=== PATIENT | female | born 1965 | race Caucasian/White ===

== ENCOUNTER 2017-08-26 10:15 | Day surgery (SDC) | payer MEDICAID ==
[2017-08-19 11:28] LABS: ABSOLUTE EOSINOPHILS # (AUTO) 0.3 10^3/uL (0.0-0.6); ABSOLUTE LYMPHOCYTES (AUTO) 3.2 10^3/uL (0.5-4.7); ABSOLUTE MONOCYTES (AUTO) 1.5 10^3/uL (0.1-1.4); ABSOLUTE NEUT (AUTO) 8.2 10^3/uL (1.7-8.2); BASOPHILS % (AUTO) 0.4 % (0-2); HEMATOCRIT 43.4 % (36.0-47.0); HEMOGLOBIN 14.3 g/dL (12.0-15.5); LYMPHOCYTES % (AUTO) 24.3 % (13-45); MEAN CORPUSCULAR VOLUME 88 fl (80-97); MONOCYTES % (AUTO) 11.3 % (3-13); PLATELET COUNT 313 10^3/uL (150-450); RED BLOOD COUNT 4.93 10^6/uL (3.72-5.28); RED CELL DISTRIBUTION WIDTH 14.2 % (11.5-14.0); TOTAL CELLS COUNTED % (AUTO) 100 %; WHITE BLOOD COUNT 13.2 10^3/uL (4.0-10.5)
[2017-08-19 11:30] LABS: APPEARANCE,URINE CLEAR; BILIRUBIN,URINE NEGATIVE (NEGATIVE); COLOR,URINE STRAW; GLUCOSE, URINE NEGATIVE (NEGATIVE); KETONES,URINE NEGATIVE (NEGATIVE); LEUKOCYTE ESTERASE,URINE TRACE (NEGATIVE); NITRITE,URINE NEGATIVE (NEGATIVE); PROTEIN,URINE NEGATIVE (NEGATIVE); URINE SPECIFIC GRAVITY 1.004; UROBILINOGEN,URINE NEGATIVE mg/dL (<2.0)
[2017-08-19 11:48] LABS: ANION GAP 10 (5-19); BLOOD UREA NITROGEN 14 mg/dL (7-20); CALCIUM 10.6 mg/dL (8.4-10.2); CARBON DIOXIDE 31 mmol/L (22-30); CHLORIDE 105 mmol/L (98-107); GLUCOSE 108 mg/dL (75-110); POTASSIUM 4.8 mmol/L (3.6-5.0); SODIUM 145.5 mmol/L (137-145)
--- NOTE | 2017-08-19 12:30 | RADIOLOGY REPORT (SQ) ---
EXAM DESCRIPTION: CHEST PA/LATERAL COMPLETED DATE/TIME: 08/19/2017 11:24 am REASON FOR STUDY: PRE OP COMPARISON: Two-view chest 02/16/2012, 05/23/2007 AP chest 02/12/2012 EXAM PARAMETERS: NUMBER OF VIEWS: two views TECHNIQUE: Digital Frontal and Lateral radiographic views of the chest acquired. RADIATION DOSE: NA LIMITATIONS: none FINDINGS: LUNGS AND PLEURA: No opacities, masses or pneumothorax. No pleural effusion. MEDIASTINUM AND HILAR STRUCTURES: No masses or contour abnormalities. HEART AND VASCULAR STRUCTURES: Heart normal size. No evidence for failure. BONES: No acute findings. HARDWARE: Clips right upper quadrant post cholecystectomy OTHER: No other significant finding. IMPRESSION: NO SIGNIFICANT RADIOGRAPHIC FINDING IN THE CHEST. TECHNICAL DOCUMENTATION: JOB ID: [id number] [employer]- All Rights Reserved Reading location - IP/workstation name: [email or web address]
--- NOTE | 2017-08-19 12:59 | EKG REPORT ---
SEVERITY:- NORMAL ECG - SINUS RHYTHM : Confirmed by: Jered Arguelles MD 19-Aug-2017 12:58:14
[~2017-08-26 10:15] MED LIST: CEFAZOLIN SODIUM 2 GM in NORMAL SALINE 100 ML IV PRN; DEXAMETHASONE SOD PHOSPHATE INJ 4 MG/1 ML VIAL ONE; FENTANYL CITRATE INJ/PF 100 MCG/2 ML AMPUL ONE; LACTATED RINGERS 1000 ML IV PRN; LIDOCAINE 0.5% INJ-PF (5 MG/ML) 50 ML SDV SUBCUT PRN; LIDOCAINE 2% INJ-PF (20 MG/ML) 10 ML AMPUL ONE; MIDAZOLAM 2 MG/2 ML INJ ONE; ONDANSETRON HCL INJ/PF 4 MG/2 ML SDV ONE; PROPOFOL INJ 200 MG/20 ML VIAL IV ONE; PROPRANOLOL HCL INJ/PF 1 MG/1 ML SDV IV ONE
[2017-08-26] MEDS ORDERED: METOCLOPRAMIDE HCL INJ/PF 10 MG/2 ML SDV ONE (10:57)
[2017-08-26] MEDS ORDERED: FAMOTIDINE INJ/PF 20 MG/2 ML SDV IV ONE (10:57)
[2017-08-26] MEDS ORDERED: ALBUTEROL SULFATE 0.083% NEB 2.5 MG/3 ML AMPUL NEB ONE (11:01)
[2017-08-26] MEDS ORDERED: IPRATROPIUM/ALBUTEROL 0.5-2.5 MG/3 ML AMPUL NEB ONE (11:03)
[2017-08-26] MEDS ORDERED: LIDOCAINE 1% INJ-PF (10 MG/ML) 30 ML SDV ONE (11:27)
[2017-08-26] MEDS ORDERED: BUPIVACAINE HCL 0.5 % INJ/PF 30 ML SDV ONE (11:27)
[2017-08-26] MEDS ORDERED: DIPHENHYDRAMINE HCL 50 MG/ML VIAL IV PRN (12:25)
[2017-08-26] MEDS ORDERED: PROMETHAZINE HCL INJ 25 MG/1 ML VIAL IV PRN ×2 (12:25)
[2017-08-26] MEDS ORDERED: MORPHINE SULFATE 10 MG/ML INJ IV PRN (12:25)
[2017-08-26] MEDS ORDERED: OXYCODONE-ACETAMINOPHEN 5-325 MG TABLET PO PRN ×2 (12:25)
[2017-08-26] MEDS ORDERED: ONDANSETRON HCL INJ/PF 4 MG/2 ML SDV IV PRN ×2 (12:25→12:37)
[2017-08-26] MEDS ORDERED: HYDROCODONE/ACETAMINOPHEN 5-325 MG TABLET PO PRN (12:37)
--- NOTE | 2017-08-26 12:37 | Operative Report ---
Operative Report DATE OF SURGERY: 08/26/17 PREOPERATIVE DIAGNOSIS: Right trigger thumb POSTOPERATIVE DIAGNOSIS: same OPERATION: Excision A1 sherita right trigger thumb SURGEON: ARY BLAKE 1ST TIMBER APPRAISER: JUJU FREY ANESTHESIA: LMAC COMPLICATIONS: None ESTIMATED BLOOD LOSS: Minimal PROCEDURE: Indication for above procedure: 52-year-old female with complaints of catching and locking in her right thumb. We discussed treatment options including operative versus nonoperative intervention. We attempted conservative management without complete resolution of patient's symptoms thus decision was made to proceed with operative treatment. Risks and benefits were explained patient verbalized understanding consented to the procedure. Procedure In Detail: Patient was seen and evaluated in the preoperative holding area. The RIGHT upper extremity was initialized and marked. Patient received 2g of Ancef IV for bacterial prophylaxis. Patient was taken back to the operative room where transferred to the operative table. Once they were adequately anesthetized a nonsterile tourniquet was placed on the upper extremity. A surgical team debriefing was performed ensuring all instrumentation was available, the surgical procedure was discussed with possible concerns reviewed. A digital block was performed utilizing 10 mL 50:50 mixture of 0.5% Marcaine and 1% lidocaine without epinephrine. The upper extremity was prepped with chlorhexidine and alcohol and draped in a sterile fashion. A timeout was done identifying correct patient, procedure and extremity everyone in attendance agree with this and verbalized no concerns. The extremity was exsanguinated the tourniquet was inflated to 200 mmHg. Transverse skin incision was made centered over the A1 sherita of the right thumb. The radial and ulnar neurovascular bundles were identified and retracted from the wound. The A1 sherita was identified and incised. The A1 sherita was released to the level of the oblique sherita but not through the oblique sherita. The palmar aponeurotic sherita was released proximal to the A1 sherita. Patient was then awoken from MAC anesthesia and made a full senior training and development rep there is no evidence of residual triggering or locking. The wound was then copiously irrigated with normal saline. Skin was closed with interrupted 4-0 nylon suture. Wound was dressed with Xeroform and a soft dressing. Sponge counts, instrument counts, needle counts counts were correct. Patient was then awoken from anesthesia. Transferred from the operating room table to the operating room stretcher. There was no intraoperative complications patient tolerated procedure well stable to PACU. Postoperative plan: Patient will follow-up as scheduled for wound check. They will call with any questions or concerns.
[2017-08-26] MEDS ORDERED: ACETAMINOPHEN 100 ML IV ONE (13:14)
[2017-08-26] MEDS ORDERED: MORPHINE SULFATE 10 MG/ML INJ ONE (13:26)
[2017-08-26 15:22] VITALS: BP 125/73
== END 2017-08-26 15:05 | disposition home or self-care (01) ==
LOC: OROUT 10:15
PROVIDERS: ATTEND Orthopaedic Surgery
PROC: 0LN70ZZ Release Right Hand Tendon, Open Approach (ICD-10-PCS; principal; 2017-08-26 12:30)
DX: M65.311 Trigger thumb, right thumb (principal); E78.5 Hyperlipidemia, unspecified; F17.210 Nicotine dependence, cigarettes, uncomplicated; J44.9 Chronic obstructive pulmonary disease, unspecified; E66.9 Obesity, unspecified; E53.9 Vitamin B deficiency, unspecified; G47.33 Obstructive sleep apnea (adult) (pediatric); E55.9 Vitamin D deficiency, unspecified; Z79.899 Other long term (current) drug therapy; Z68.37 Body mass index [BMI] 37.0-37.9, adult
CPT/HCPCS: 93005; 36415; 85025; 81025; 80048; 81001; 71046; 93010; 94640; 26055; J2250; J0690; J1100; J3490 ×2; J2765; J2270; J2405; J2704; S0028; J7620; J0131; 1810; J1800; J3010

== ENCOUNTER 2018-07-29 05:25 | Day surgery (SDC) | payer MEDICAID ==
--- NOTE | 2018-07-23 10:31 | RADIOLOGY REPORT (SQ) ---
EXAM DESCRIPTION: CHEST PA/LATERAL COMPLETED DATE/TIME: 07/23/2018 10:17 am REASON FOR STUDY: PRE-OP COMPARISON: None. NUMBER OF VIEWS: Two view. TECHNIQUE: Frontal and lateral radiographic views of the chest acquired. LIMITATIONS: None. FINDINGS: LUNGS AND PLEURA: No opacities, masses or pneumothorax. No pleural effusion. MEDIASTINUM AND HILAR STRUCTURES: No masses or contour abnormalities. HEART AND VASCULATURE: Heart normal size. No evidence for failure. BONY STRUCTURES: No acute findings. HARDWARE: None. OTHER: No other significant finding. IMPRESSION: NO SIGNIFICANT RADIOGRAPHIC FINDING IN THE CHEST. TECHNICAL DOCUMENTATION: JOB ID: [id number] [employer]- All Rights Reserved Reading location - IP/workstation name: [email or web address]
[2018-07-23 10:52] LABS: HEMATOCRIT 44.3 % (36.0-47.0); HEMOGLOBIN 15.3 g/dL (12.0-15.5); MEAN CORPUSCULAR HEMOGLOBIN 31.1 pg (27.0-33.4); MEAN CORPUSCULAR HGB CONC 34.5 g/dL (32.0-36.0); MEAN CORPUSCULAR VOLUME 90 fl (80-97); PLATELET COUNT 293 10^3/uL (150-450); RED CELL DISTRIBUTION WIDTH 13.4 % (11.5-14.0); WHITE BLOOD COUNT 10.5 10^3/uL (4.0-10.5)
[2018-07-23 10:57] LABS: APPEARANCE,URINE CLOUDY; BILIRUBIN,URINE NEGATIVE (NEGATIVE); COLOR,URINE YELLOW; GLUCOSE, URINE NEGATIVE (NEGATIVE); KETONES,URINE NEGATIVE (NEGATIVE); LEUKOCYTE ESTERASE,URINE LARGE (NEGATIVE); NITRITE,URINE POSITIVE (NEGATIVE); PROTEIN,URINE NEGATIVE (NEGATIVE); URINE SPECIFIC GRAVITY 1.009; UROBILINOGEN,URINE NEGATIVE mg/dL (<2.0)
[2018-07-23 11:26] LABS: ANION GAP 10 (5-19); BLOOD UREA NITROGEN 14 mg/dL (7-20); CALCIUM 10.3 mg/dL (8.4-10.2); CARBON DIOXIDE 26 mmol/L (22-30); CHLORIDE 106 mmol/L (98-107); GLUCOSE 102 mg/dL (75-110); POTASSIUM 4.7 mmol/L (3.6-5.0)
--- NOTE | 2018-07-23 13:51 | EKG REPORT ---
SEVERITY:- ABNORMAL ECG - SINUS RHYTHM FIRST DEGREE AV BLOCK PROBABLE LEFT ATRIAL ABNORMALITY : Confirmed by: Jered Arguelles MD 23-Jul-2018 13:50:37
[~2018-07-29 05:25] MED LIST changes: +CEFAZOLIN 2 GM/D5W RTU 2 GM/50 ML RTUPB IV ONE; +CEFAZOLIN 2 GM/D5W RTU 2 GM/50 ML RTUPB IV PRN; -CEFAZOLIN SODIUM 2 GM in NORMAL SALINE 100 ML IV PRN; -DEXAMETHASONE SOD PHOSPHATE INJ 4 MG/1 ML VIAL ONE; -FENTANYL CITRATE INJ/PF 100 MCG/2 ML AMPUL ONE; -LIDOCAINE 2% INJ-PF (20 MG/ML) 10 ML AMPUL ONE; -MIDAZOLAM 2 MG/2 ML INJ ONE; -ONDANSETRON HCL INJ/PF 4 MG/2 ML SDV ONE; -PROPOFOL INJ 200 MG/20 ML VIAL IV ONE; -PROPRANOLOL HCL INJ/PF 1 MG/1 ML SDV IV ONE
[2018-07-29] MEDS ORDERED: PROMETHAZINE HCL INJ 25 MG/1 ML VIAL ONE (06:55)
[2018-07-29] MEDS ORDERED: FENTANYL CITRATE INJ/PF 100 MCG/2 ML AMPUL ONE (06:55)
[2018-07-29] MEDS ORDERED: MIDAZOLAM 2 MG/2 ML INJ ONE (06:56)
[2018-07-29] MEDS ORDERED: ACETAMINOPHEN 1,000 MG/100 ML RTUPB IV ONE (06:56)
[2018-07-29] MEDS ORDERED: ONDANSETRON HCL INJ/PF 4 MG/2 ML SDV ONE (06:56)
[2018-07-29] MEDS ORDERED: PROPOFOL INJ 200 MG/20 ML VIAL IV ONE (06:56)
[2018-07-29] MEDS ORDERED: EPHEDRINE SULFATE INJ 50 MG/1 ML AMPULE ONE (06:56)
[2018-07-29] MEDS ORDERED: LIDOCAINE 2% INJ (20 MG/ML) 20 ML MDV ONE (06:57)
[2018-07-29] MEDS ORDERED: BUPIVACAINE HCL 0.5 % INJ/PF 30 ML SDV ONE (07:05)
[2018-07-29] MEDS ORDERED: LIDOCAINE 1%/EPINEPHRINE INJ 20 ML VIAL ONE (07:06)
[2018-07-29] MEDS ORDERED: MORPHINE SULFATE 10 MG/ML INJ ONE (07:09)
[2018-07-29] MEDS ORDERED: MORPHINE SULFATE 10 MG/ML INJ IV PRN (07:44)
[2018-07-29] MEDS ORDERED: PROMETHAZINE HCL INJ 25 MG/1 ML VIAL IV PRN ×2 (07:44)
[2018-07-29] MEDS ORDERED: DIPHENHYDRAMINE HCL 50 MG/ML VIAL IV PRN (07:44)
[2018-07-29] MEDS ORDERED: FENTANYL CITRATE INJ/PF 100 MCG/2 ML AMPUL IV PRN ×3 (07:44)
[2018-07-29] MEDS ORDERED: MEPERIDINE HCL/PF INJ 25 MG/1 ML DISP.SYRIN IV PRN (07:44)
--- NOTE | 2018-07-29 08:02 | Discharge Summary ---
Discharge Summary (SDC) - Discharge Final Diagnosis: Left medial meniscal tear Date of Surgery: 07/29/18 Discharge Date: 07/29/18 Condition: Good Treatment or Instructions: Removed compressive wrap from left knee on Friday. Underlying OpSite dressing can be left intact until you return to the office. You can shower once the compressive wrap has been removed. Prescriptions: Oxycodone HCl/Acetaminophen [Percocet 5-325 mg Tablet] 1 tab PO Q6 PRN #40 tab PRN Reason: Referrals: ASH JACOBSON PA-C [Primary Care Provider] - Respiratory Treatments at Home: Deep Breathing/Coughing Discharge Activity: Balance Activity w/Rest, No tub bath Home Care Assistance: None Needed Report the Following to Your Physician Immediately: Shortness of Breath, Fever over 101 Degrees, Drainage-Foul Smelling
--- NOTE | 2018-07-29 08:04 | Operative Report ---
Operative Report DATE OF SURGERY: 07/29/18 PREOPERATIVE DIAGNOSIS: Left medial meniscal tear POSTOPERATIVE DIAGNOSIS: Left medial meniscal tear. Grade 1 chondral malacia medial compartment. Intact ACL. Grade 0-1 chondral malacia lateral compartment. Intact lateral meniscus. Grade I chondromalacia the patellofemoral compartment OPERATION: Arthroscopic left partial medial meniscectomy SURGEON: MENG DURON ANESTHESIA: LMAC PROCEDURE: With the patient supine on the operative table the left lower extremities prepped and draped in a sterile fashion. The knee is insufflated with a combination of Marcaine, Xylocaine, and epinephrine. Subsequent medial lateral patella portals are created for the introduction of arthroscope and debridements mentation. Joint is examined in systematic fashion findings as above. Using combination of basket Jorge, mechanical shaver, electric frequency ablation probe a partial medial meniscectomy was performed from approximately 8:00 to 12:00 on the face of the dial. The joint is again examined in systematic fashion with no new findings. The instrumentation was removed. The portals reapproximated interrupted nylon. A sterile compressive dressing is applied. The patient's return to PACU in satisfactory condition.
[2018-07-29] MEDS ORDERED: OXYCODONE-ACETAMINOPHEN 5-325 MG TABLET ONE (09:07)
[2018-07-29 11:13] VITALS: BP 127/86
== END 2018-07-29 10:05 | disposition home or self-care (01) ==
LOC: OROUT 05:25
PROVIDERS: ATTEND Orthopaedic Surgery
DX: M23.304 Other meniscus derangements, unspecified medial meniscus, left knee (principal); M25.562 Pain in left knee; J44.9 Chronic obstructive pulmonary disease, unspecified; E78.5 Hyperlipidemia, unspecified; F17.210 Nicotine dependence, cigarettes, uncomplicated; Z79.899 Other long term (current) drug therapy; Z88.8 Allergy status to other drugs, medicaments and biological substances; Z88.6 Allergy status to analgesic agent; Z79.51 Long term (current) use of inhaled steroids
CPT/HCPCS: 93005; 36415; 85027; 80048; 81001; 71046; 93010; 29881; J2250; J3490 ×4; J2270; J2550; J2405; J2704; J0690; J0131; 1400; J3010

== ENCOUNTER 2018-07-30 12:34 | Emergency (ER) | payer MEDICAID ==
[2018-07-30 13:26] VITALS: BP 112/71
[2018-07-30] MEDS ORDERED: NALOXONE HCL INJ/PF 0.4 MG/1 ML SDV IV ONE ×2 (13:37→14:42)
--- NOTE | 2018-07-30 13:38 | ER Document Report ---
ED General - General Chief Complaint: Altered Mental Status Stated Complaint: FALL/HEAD INJURY Time Seen by Provider: 07/30/18 13:21 Primary Care Provider: ASH JACOBSON PA-C [Primary Care Provider] - Follow up as needed Information source: Patient, Relative TRAVEL OUTSIDE OF THE [place] IN LAST 30 DAYS: No - HPI Notes: 52-year-old female presents to the ED by private car with her daughter for evaluation after patient states she fell off her bed daughter states she is not acting like herself. Patient has a baseline of slurred speech but patient's da ughter states that it seems more slurred today. Patient just had a left meniscal knee surgery yesterday by Dr. Brewer, was discharged home after surgery. Daughter has been with patient at time. Patient does have a chronic pain history was given prescribed prescription medication for her procedure yesterday. Daughter states she rolled off the bed, was unwitnessed however patient states she landed on her right knee, which has become slightly painful. Patient denies taking any unprescribed medication, denies over taking her controlled substance medications. Daughter is suspicious that she may have taken more of her opioids that has been prescribed to her. Denies fevers, chills, chest pain,palpitations, shortness of breath, dyspnea, nausea, vomiting, diarrhea, abdominal pain, hematuria,blurred vision, double vision, loss of vision, speech changes, LH, dizziness, syncope, headaches, wheezing, ST, URI, neck pain, weakness, bowel or bladder dysfunction, saddle anesthesia, numbness or tingling in bilateral upper or lower extremities equally, muscle paralysis, weakness in bilateral upper or lower extremities equally or rash. - Related Data Allergies/Adverse Reactions: fentanyl [Fentanyl] Allergy (Severe, Verified 07/29/18 05:51) rash ibuprofen [Ibuprofen] Allergy (Mild, Verified 07/29/18 05:51) rash Past Medical History - General Information source: Patient, Relative - Social History Smoking Status: Unknown if Ever Smoked Family History: Reviewed & Not Pertinent Patient has suicidal ideation: No Patient has homicidal ideation: No - Past Medical History Cardiac Medical History: Denies: Hx Coronary Artery Disease, Hx Heart Attack, Hx Hypertension Pulmonary Medical History: Reports: Hx Bronchitis, Hx COPD, Hx Pneumonia Denies: Hx Asthma, Hx Tuberculosis Neurological Medical History: Denies: Hx Cerebrovascular Accident, Hx Seizures Renal/ Medical History: Denies: Hx Peritoneal Dialysis Musculoskeletal Medical History: Denies Hx Arthritis Past Surgical History: Reports: Hx Appendectomy, Hx Cholecystectomy, Hx Pancreatic Surgery, Hx Tubal Ligation. Denies: Hx Hysterectomy, Hx Pacemaker - Immunizations Hx Diphtheria, Pertussis, Tetanus Vaccination: No Review of Systems - Review of Systems Constitutional: See HPI EENT: No symptoms reported Cardiovascular: No symptoms reported Respiratory: No symptoms reported Gastrointestinal: No symptoms reported Genitourinary: No symptoms reported Female Genitourinary: No symptoms reported Musculoskeletal: See HPI Skin: No symptoms reported Hematologic/Lymphatic: No symptoms reported Neurological/Psychological: See HPI Physical Exam - Vital signs Vitals: Temp Pulse Resp BP Pulse Ox 98.8 F 85 14 99/63 L 93 07/30/18 12:50 07/30/18 12:50 07/30/18 12:50 07/30/18 12:50 07/30/18 12:50 - Notes Notes: PHYSICAL EXAMINATION: GENERAL: Well-appearing, well-nourished and in no acute distress. HEAD: Atraumatic, normocephalic. EYES: Pupils equal round and reactive to light, extraocular movements intact, conjunctiva are normal. ENT: Nares patent, oropharynx clear without exudates. Moist mucous membranes. NECK: Normal range of motion, supple without lymphadenopathy LUNGS: Breath sounds clear to auscultation bilaterally and equal. No wheezes rales or rhonchi. HEART: Regular rate and rhythm without murmurs ABDOMEN: Soft, nontender, nondistended abdomen. No guarding, no rebound. No masses appreciated. Female : deferred Musculoskeletal: Normal range of motion, no pitting or edema. No cyanosis. NEUROLOGICAL: Cranial nerves grossly intact. Normal speech, normal gait. Normal sensory, motor exams. PSYCH: Normal mood, normal affect. SKIN: Warm, Dry, normal turgor, no rashes or lesions noted. Left knee with swelling, puncture wounds, no erythema induration or warmth to touch - Neurological Neuro grossly intact: Yes Cognition: Normal Orientation: AAOx4 Renetta Coma Scale Eye Opening: Spontaneous Mobile Coma Scale Verbal: Oriented Renetta Coma Scale Motor: Obeys Commands Mobile Coma Scale Total: 15 Speech: Normal Cranial nerves: Normal Cerebellar coordination: Normal Motor strength normal: LUE, RUE, RLE - had knee replacement on 07/29/18 Additional motor exam normals: Equal instruction dean Babinski reflex: Normal (flexor plantar) Sensory: Normal Course - Re-evaluation Re-evalutation: 07/30/18 15:33 52-year-old female presents via private car for evaluation of slurred speech, lethargy and falling off her bed by her daughter, event was unwitnessed. CT of head was negative for intracerebral bleed, swelling, masses or subdural hematoma. Patient recently had surgery on her left meniscus yesterday, and daughter states that she does take pain medication every day, patient denies taking more pain medications and was prescribed CBC CMP unremarkable for leukocytosis or anemia, no hepatic or renal dysfunction, no electrolyte disturbances. CK elevated however this is not to be unexpected since patient just had knee surgery yesterday. [place] controlled substance reporting system shows that patient was prescribed 40 tablets of oxycodone acetaminophen 5 mg 325 on July 29, [address] Arturo Brewer and pt has patient has been routinely prescribed by her primary care provider Dr. Romy Bae for diazepam 5 mg, Ambien 10 mg clonazepam 0.5 mg monthly. Urinalysis negative for any UTI, hematuria. patient given 2 doses of Narcan 0.4, noted patient's affect and required for environment increased dramatically. After 2 Narcan's, pts level of consciousness at baseline, awake alert completely orientated and states she would like to leave, states she took a "couple of Tylenol PMs along with the pain medication"and this is why she became so drowsy, her daughter became concerned and called EMS. Discussed the patient that she needs to stay longer to make sure she does not have a reaction to medication or she does not become lethargic however patient has never had symptoms in the past, she may need to be observed for longer. Patient did not agree with this plan of care and insisted on leaving The patient has chosen to leave the facility against medical advice. The rel evant issues have been reviewed and discussed with the patient and family at the bedside. At the time of this assessment there is no indication for involuntary commitment. The patient is alert, oriented, and able to express clearly their reasoning for not wanting to remain in the emergency department for further treatment. The patient is not clinically psychotic, intoxicated, and denies and suicidal ideation. Differential or suspected diagnoses based on medical screening exam: Likely overdose of opioids or other controlled substances The patient is aware of the concerning diagnoses and acknowledges understanding of the reasons for the following recommendations: Observation for any side ef fects of medications, monitoring of level of consciousness The following recommendations/services were offered and refused: Staying for observation for a couple more hours in the emergency room since patient did receive 2 Narcan. She did she resistant here The following risks were explained: , permanent disability, loss of function Clinical impression: Patient is competent to make decisions regarding the medical that is being offered. Jericho Poe RN, at bedside, and his conversation, all questions and concerns answered by this provider. Patient was insistent on leaving verbalized understanding of risk and benefits of going, was not under any impairment, fully cognitive awake and orientated, no impairment in her judgment. 07/30/18 18:34 - Vital Signs Vital signs: Temp Pulse Resp BP Pulse Ox 98.8 F 85 12 112/71 98 07/30/18 12:50 07/30/18 12:50 07/30/18 13:24 07/30/18 13:24 07/30/18 13:24 - Laboratory Result Diagrams: 07/30/18 13:24 07/30/18 13:24 Laboratory results interpreted by me: 07/30/18 07/30/18 13:24 13:24 Est GFR ( Amer) 58 L Est GFR (Non-Af Amer) 48 L Glucose 124 H Creatine Kinase 335 H Salicylates < 1.0 L Acetaminophen < 10 L Discharge - Discharge Clinical Impression: Altered mental status Condition: Stable Disposition: ADMITTED INPATIENT Instructions: Altered Mental Status ([facility]), Overdose ([facility]), Instructions for Home Care Following a Drug Overdose ([facility]) Additional Instructions: Return immediately for any new or worsening symptoms. Follow up with primary care provider, call tomorrow to make followup appointment. Referrals: ASH JACOBSON PA-C [Primary Care Provider] - Follow up tomorrow ASHLEY BARRETT MD [ACTIVE STAFF] - Follow up tomorrow
[2018-07-30 13:43] LABS: ABSOLUTE BASOPHILS # (AUTO) 0.1 10^3/uL (0.0-0.2); ABSOLUTE EOSINOPHILS # (AUTO) 0.1 10^3/uL (0.0-0.6); ABSOLUTE LYMPHOCYTES (AUTO) 2.6 10^3/uL (0.5-4.7); ABSOLUTE MONOCYTES (AUTO) 0.7 10^3/uL (0.1-1.4); ABSOLUTE NEUT (AUTO) 6.7 10^3/uL (1.7-8.2); BASOPHILS % (AUTO) 0.5 % (0-2); EOSINOPHILS % (AUTO) 1.3 % (0-6); HEMATOCRIT 41.5 % (36.0-47.0); HEMOGLOBIN 14.5 g/dL (12.0-15.5); LYMPHOCYTES % (AUTO) 25.4 % (13-45); MEAN CORPUSCULAR HEMOGLOBIN 31.5 pg (27.0-33.4); MEAN CORPUSCULAR HGB CONC 34.9 g/dL (32.0-36.0); MEAN CORPUSCULAR VOLUME 90 fl (80-97); MONOCYTES % (AUTO) 7.3 % (3-13); PLATELET COUNT 240 10^3/uL (150-450); RED CELL DISTRIBUTION WIDTH 13.4 % (11.5-14.0); SEGMENTED NEUTROPHILS % (AUTO) 65.5 % (42-78); TOTAL CELLS COUNTED % (AUTO) 100 %; WHITE BLOOD COUNT 10.2 10^3/uL (4.0-10.5)
[2018-07-30 13:45] LABS: INTERNATIONAL RATION (INR) 0.94; PROTHROMBIN TIME 13.1 SEC (11.4-15.4)
[2018-07-30 13:46] LABS: PARTIAL THROMBOPLASTIN TIME 28.1 SEC (23.5-35.8)
--- NOTE | 2018-07-30 13:58 | RADIOLOGY REPORT (SQ) ---
EXAM DESCRIPTION: CT HEAD WITHOUT COMPLETED DATE/TIME: 07/30/2018 1:48 pm REASON FOR STUDY: change in loc, neuro changes. COMPARISON: CT brain 03/01/2011, 05/15/2008 TECHNIQUE: Axial images acquired through the brain without intravenous contrast. Images reviewed wi th bone, brain and subdural windows. Additional sagittal and coronal reconstructions were generated. Images stored on PACS. All CT scanners at this facility use dose modulation, iterative reconstruction, and/or weight based d osing when appropriate to reduce radiation dose to as low as reasonably achievable (ALARA). [facility]: Dose Right [facility]: CareDose [facility]: Dose Right [facility]: Teradose 4D [facility]: SalesLoft RADIATION DOSE: CT Rad equipment meets quality standard of care and radiation dose reduction techniq ues were employed. CTDIvol: 53.2 mGy. DLP: 1017 mGy-cm. mGy. LIMITATIONS: None. FINDINGS: VENTRICLES: Normal size and contour. CEREBRUM: No masses. No hemorrhage. No midline shift. No evidence for acute infarction. Normal gra y/white matter differentiation. No areas of low density in the white matter. CEREBELLUM: No masses. No hemorrhage. No alteration of density. No evidence for acute infarction. EXTRAAXIAL SPACES: No fluid collections. No masses. ORBITS AND GLOBE: No intra- or extraconal masses. Normal contour of globe without masses. CALVARIUM: No fracture. PARANASAL SINUSES: No fluid or mucosal thickening. SOFT TISSUES: No mass or hematoma. OTHER: No other significant finding. IMPRESSION: NORMAL BRAIN CT WITHOUT CONTRAST. EVIDENCE OF ACUTE STROKE: NO. COMMENT: Quality ID # [id number]: Final reports with documentation of one or more dose reduction techniques (e.g., Automated exposure control, adjustment of the mA and/or kV according to patient size, use of iterative reconstruction technique) TECHNICAL DOCUMENTATION: JOB ID: [id number] [employer]- All Rights Reserved Reading location - IP/workstation name: [email or web address]
[2018-07-30 14:07] LABS: ALANINE AMINOTRANSFERASE 25 U/L (9-52); ALBUMIN 3.7 g/dL (3.5-5.0); ALKALINE PHOSPHATASE 94 U/L (38-126); ANION GAP 10 (5-19); ASPARTATE AMINO TRANSFERASE 25 U/L (14-36); BILIRUBIN,DIRECT 0.3 mg/dL (0.0-0.4); BILIRUBIN,TOTAL 0.3 mg/dL (0.2-1.3); BLOOD UREA NITROGEN 18 mg/dL (7-20); CALCIUM 9.8 mg/dL (8.4-10.2); CARBON DIOXIDE 26 mmol/L (22-30); CHLORIDE 104 mmol/L (98-107); CREATINE KINASE 335 U/L (30-135); GLUCOSE 124 mg/dL (75-110); POTASSIUM 3.6 mmol/L (3.6-5.0); SODIUM 139.9 mmol/L (137-145); TOTAL PROTEIN 6.8 g/dL (6.3-8.2)
[2018-07-30 14:12] LABS: ACETAMINOPHEN < 10 ug/mL (10-30); ALCOHOL < 10 mg/dL (NONE DETECTED); SALICYLATE < 1.0 mg/dL (2.0-20.0)
--- NOTE | 2018-07-30 14:15 | RADIOLOGY REPORT (SQ) ---
EXAM DESCRIPTION: CHEST 2 VIEWS COMPLETED DATE/TIME: 07/30/2018 2:02 pm REASON FOR STUDY: slurred speech, change in loc COMPARISON: None. EXAM PARAMETERS: NUMBER OF VIEWS: two views TECHNIQUE: Digital Frontal and Lateral radiographic views of the chest acquired. RADIATION DOSE: NA LIMITATIONS: none FINDINGS: LUNGS AND PLEURA: No opacities, masses or pneumothorax. No pleural effusion. MEDIASTINUM AND HILAR STRUCTURES: No masses or contour abnormalities. HEART AND VASCULAR STRUCTURES: Heart normal size. No evidence for failure. BONES: No acute findings. HARDWARE: None in the chest. OTHER: No other significant finding. IMPRESSION: NO ACUTE RADIOGRAPHIC FINDING IN THE CHEST. TECHNICAL DOCUMENTATION: JOB ID: [id number] [employer]- All Rights Reserved Reading location - IP/workstation name: [email or web address]
[2018-07-30 14:21] LABS: CREATINE KINASE MB 1.69 ng/mL (<4.55)
[2018-07-30 14:22] LABS: TROPONIN I < 0.012 ng/mL
[2018-07-30 15:39] LABS: URINE AMPHETAMINES SCREEN NEGATIVE; URINE BARBITURATES SCREEN NEGATIVE; URINE BENZODIAZEPINES SCREEN UNCONFIRMED POSITIVE; URINE COCAINE SCREEN NEGATIVE; URINE MARIJUANA (THC) SCREEN NEGATIVE; URINE METHADONE SCREEN NEGATIVE; URINE PHENCYCLIDINE SCREEN NEGATIVE
--- NOTE | 2018-07-30 15:40 | RADIOLOGY REPORT (SQ) ---
EXAM DESCRIPTION: KNEE LEFT 3 VIEWS COMPLETED DATE/TIME: 07/30/2018 3:27 pm REASON FOR STUDY: surgery on L MCL, fell on knee today COMPARISON: None. NUMBER OF VIEWS: Four views. TECHNIQUE: AP, lateral, and both oblique radiographic images acquired of the left knee. LIMITATIONS: None. FINDINGS: MINERALIZATION: Normal. BONES: No acute fracture or bony abnormality seen. JOINT: Fluid and air noted in the left knee joint . SOFT TISSUES: Soft tissue air surrounds the left knee. OTHER: No other significant finding. IMPRESSION: No acute fracture seen. TECHNICAL DOCUMENTATION: JOB ID: [id number] 2010 [employer]- All Rights Reserved Reading location - IP/workstation name: [email or web address]
--- NOTE | 2018-07-30 22:51 | EKG REPORT ---
SEVERITY:- ABNORMAL ECG - SINUS RHYTHM FIRST DEGREE AV BLOCK : Confirmed by: Simon Dorsey 30-Jul-2018 22:50:41
== END 2018-07-30 13:45 | disposition left against medical advice (07) ==
LOC: ER 12:34
DX: R41.82 Altered mental status, unspecified (principal); R47.81 Slurred speech; R53.83 Other fatigue; Z96.651 Presence of right artificial knee joint; Z98.890 Other specified postprocedural states; Z90.49 Acquired absence of other specified parts of digestive tract; Z98.51 Tubal ligation status; Z88.6 Allergy status to analgesic agent
CPT/HCPCS: 93005; 99285; 96374; 36415; 82553; 80307 ×4; 82550; 85025; 85610; 85730; 80053; 84484; 71046; 73562; 70450; 93010; J2310

== ENCOUNTER 2018-08-16 14:55 | Emergency (ER) | payer MEDICAID ==
[2018-08-16 15:02] VITALS: BP 129/74
[2018-08-16] MEDS ORDERED: ONDANSETRON HCL INJ/PF 4 MG/2 ML SDV IV ONE (15:08)
[2018-08-16] MEDS ORDERED: NORMAL SALINE 1000 ML 1,000 ML IV PRN (15:08)
== END 2018-08-16 15:23 | disposition left against medical advice (07) ==
LOC: ER 14:55
DX: Z53.21 Procedure and treatment not carried out due to patient leaving prior to being seen by health care provider (principal)

== ENCOUNTER 2018-08-17 01:33 | Emergency (ER) | payer MEDICAID ==
[2018-08-17] MEDS ORDERED: NORMAL SALINE 1000 ML 1,000 ML IV ONE (03:55)
[2018-08-17] MEDS ORDERED: MORPHINE SULFATE 10 MG/ML INJ IV ONE ×2 (03:55→06:01)
[2018-08-17] MEDS ORDERED: ONDANSETRON HCL INJ/PF 4 MG/2 ML SDV IV ONE (03:55)
--- NOTE | 2018-08-17 04:00 | ER Document Report ---
Addendum entered and electronically signed by JINA COX FNP 08/17/18 08:24: Course - Re-evaluation Re-evalutation: 08/17/18 08:23 The patient stated that Gerry Abad NP was going to give her pain medication to go home with. I have given her 6 tablets of morphine 15 mg every 8 hours as needed for pain. - Vital Signs Vital signs: Temp Pulse Resp BP Pulse Ox 97.6 F 65 21 H 120/86 H 95 08/17/18 02:15 08/17/18 02:15 08/17/18 07:01 08/17/18 07:01 08/17/18 07:01 - Laboratory Result Diagrams: 08/17/18 03:45 08/17/18 03:45 Laboratory results interpreted by me: 08/17/18 08/17/18 08/17/18 03:45 03:45 05:50 WBC 13.5 H Hgb 15.8 H Absolute Neutrophils 8.4 H Sodium 136.7 L Calcium 10.6 H Urine Ketones 20 H Urine Blood SMALL H Urine Nitrite POSITIVE H Ur Leukocyte Esterase TRACE H Addendum entered and electronically signed by JINA COX FNP 08/17/18 08:22: Discharge - Discharge Clinical Impression: Abnormal EKG Nausea & vomiting Qualifiers: Vomiting type: unspecified Vomiting Intractability: non-intractable Qualified Code(s): R11.2 - Nausea with vomiting, unspecified Chest pain Qualifiers: Chest pain type: unspecified Qualified Code(s): R07.9 - Chest pain, unspecified UTI (urinary tract infection) Qualifiers: Urinary tract infection type: acute cystitis Hematuria presence: without hematuria Qualified Code(s): N30.00 - Acute cystitis without hematuria Condition: Stable Disposition: HOME, SELF-CARE Instructions: Cephalexin ([facility]), Urinary Tract Infection ([facility]), Vomiting ([facility]) Additional Instructions: Take medication as prescribed. Drink plenty of fluids. Follow-up with your family doctor at the next available appointment. Follow-up with cardiology at the next available appointment. Follow-up sooner or return the emergency department for worsening pain, high fever, worsening chest pain, shortness of breath, difficulty breathing, persistent vomiting, or for any further concerns. Prescriptions: Cephalexin Monohydrate [Keflex 500 mg Capsule] 500 mg PO Q6H 5 Days capsule Morphine Sulfate [Morphine Ir 15 Mg Tablet] 15 mg PO Q8 #6 tablet Ondansetron HCl [Zofran 4 mg Tablet] 1 - 2 tab PO Q4H PRN #10 tablet PRN Reason: Forms: Smoking Cessation Education Referrals: ASH JACOBSON PA-C [Primary Care Provider] - Follow up as needed GAETANO COLMENARES MD [ACTIVE STAFF] - Follow up as needed Original Note: ED General <CALVIN CLOUD - Last Filed: 08/17/18 04:50> - General Mode of Arrival: Ambulatory Information source: Patient TRAVEL OUTSIDE OF THE [place] IN LAST 30 DAYS: No - HPI Patient complains to provider of: WEAKNESS, ABDO PAIN, N/V/D <GERRY ABAD - Last Filed: 08/17/18 08:07> - General Chief Complaint: Weakness Stated Complaint: WEAKNESS Time Seen by Provider: 08/17/18 03:46 Primary Care Provider: ASH JACOBSON PA-C [Primary Care Provider] - Follow up as needed GAETANO COLMENARES MD [ACTIVE STAFF] - Follow up as needed - HPI Notes: Patient is here with multiple complaints. She states for the last 3-4 days she has had generalized body aches, muscle cramping, nausea, vomiting, diarrhea, and some intermittent abdominal cramping. She also has some occasional chest pain. She denies any chest pain currently. She denies any significant shortness of breath. No fevers. She does report she is been feeling hot and cold. She denies dysuria or hematuria. She denies any blood in her vomit or her stool. She is unable to quantify her diarrhea or her vomiting for me. She denies any significant cough. No rash. She does have a history of COPD. She is a former smoker. She denies any known sick contacts. She denies any recent long trips or surgeries, leg pain or leg swelling, history of DVT or PE, cancer. She has a history of depression and anxiety. She denies history of CAD, hypertension, high cholesterol, diabetes. Patient states that she feels generally weak. She feels like she is dehydrated. She denies any dysuria or hematuria. She denies any other complaints at this time. (GERRY ABAD) - Related Data Allergies/Adverse Reactions: fentanyl [Fentanyl] Allergy (Severe, Verified 07/29/18 05:51) rash ibuprofen [Ibuprofen] Allergy (Mild, Verified 07/29/18 05:51) rash Past Medical History - Social History Smoking Status: Former Smoker Family History: Reviewed & Not Pertinent - Past Medical History Cardiac Medical History: Denies: Hx Coronary Artery Disease, Hx Heart Attack, Hx Hypertension Pulmonary Medical History: Reports: Hx Bronchitis, Hx COPD, Hx Pneumonia Denies: Hx Asthma, Hx Tuberculosis Neurological Medical History: Denies: Hx Cerebrovascular Accident, Hx Seizures Renal/ Medical History: Denies: Hx Peritoneal Dialysis Musculoskeletal Medical History: Denies Hx Arthritis Past Surgical History: Reports: Hx Appendectomy, Hx Cholecystectomy, Hx Pancrea tic Surgery, Hx Tubal Ligation. Denies: Hx Hysterectomy, Hx Pacemaker - Immunizations Hx Diphtheria, Pertussis, Tetanus Vaccination: No <GERRY ABAD - Last Filed: 08/17/18 08:07> Review of Systems - Review of Systems -: Yes All other systems reviewed and negative <GERRY ABAD - Last Filed: 08/17/18 08:07> Physical Exam <GERRY ABAD - Last Filed: 08/17/18 08:07> - Vital signs Vitals: Temp Pulse Resp BP Pulse Ox 97.6 F 65 16 132/81 H 95 08/17/18 02:15 08/17/18 02:15 08/17/18 02:15 08/17/18 02:15 08/17/18 02:15 - Notes Notes: GENERAL: alert, cooperative, nontoxic, no distress. HEAD: normocephalic, atraumatic EYES: conjunctiva pink without discharge, no external redness or swelling. EARS: no external swelling, no external redness NOSE: atraumatic, no external swelling MOUTH/THROAT: mucous membranes pink and dry., posterior pharynx without erythema, swelling, exudate. No trismus or drooling. NECK: soft, supple, full range of motion, no meningismus. CHEST: no distress, lungs clear and equal throughout. No wheezing, rales, rhonchi. CARDIAC: regular rate and rhythm, no murmur, normal capillary refill, normal pulses. No peripheral edema noted. ABDOMEN: Soft, tenderness to palpation to the lower mid abdomen. No rebound tenderness or guarding. No obvious mass. BACK: full range of motion, no CVA tenderness. EXTREMITIES: full range of motion of all extremities. No redness, no swelling. NEURO: alert and oriented x 3, no focal deficits, full range of motion of all extremities. PYSCH: appropriate mood, affect. Patient is cooperative. SKIN: pink, warm, dry, no rash. (GERRY ABAD) Course - Laboratory Result Diagrams: 08/17/18 03:45 08/17/18 03:45 <CALVIN CLOUD - Last Filed: 08/17/18 04:50> - Laboratory Result Diagrams: 08/17/18 03:45 08/17/18 03:45 - EKG Interpretation by Me EKG shows normal: Sinus rhythm, [place], Intervals, QRS Complexes Rate: Bradycardia When compared to previous EKG there are: Other - Inverted T wave in V2, no ST elevation or depression. No STEMI. <GERRY ABAD - Last Filed: 08/17/18 08:07> - Re-evaluation Re-evalutation: 08/17/18 04:50 I personally evaluated this patient and agree with plan of care and workup. Patient just received nausea medication but states she is feeling nauseated still. She has not vomited while in the emergency room. Her abdominal exam is soft with mild diffuse tenderness. Patient also complaining of diarrhea. She is otherwise stable and nontoxic in appearance. Patient does have new T wave inversion V2. Heart score 3. will continue to monitor (CALVIN CLOUD) 08/17/18 04:47 Heart score is 3. 08/17/18 06:01 Patient is feeling somewhat better at this time. No vomiting in the emergency department. Thus far her workup is unremarkable aside from 1 inverted T wave on her EKG. Initial troponin is negative. Heart score is 3. Chest x-ray is negative. No PE risk factors. Labs are unremarkable. CT the abdomen and pelvis shows no acute abnormality. Repeat troponin has been ordered for 645. Discussed all this with the patient. States she started to have a little bit of epigastric discomfort again, but denies any chest pain currently. I will order some morphine, we will continue to monitor. 08/17/18 07:21 Patient is feeling significantly better at this time. No vomiting. She is drinking water without difficulty. Urinalysis shows possible UTI. She was given a dose of Rocephin here in the emergency department, a urine culture has been sent. Currently awaiting her repeat troponin. If this is negative, the patient will be discharged home with a prescription for Zofran and Keflex. We will continue to monitor at this time. 08/17/18 08:06 Patient is nontoxic-appearing with stable vitals. Patient here with complaints of multiple complaints including some abdominal pain, body aches, cramps, intermittent chest pain. No chest pain now. Heart score is 3. No PE risk factors. EKG showed an inverted T wave in V2, otherwise was unremarkable. 2 troponins were negative. Labs are unremarkable aside from a urinary tract infection. CT of the abdomen pelvis was unremarkable. Patient is taking p.o. fluids without difficulty and feeling significantly better at this time. At this point the patient will be discharged home with instructions to take antib iotics. Drink plenty fluids. Follow-up with cardiology at the next available appointment regarding her abnormal EKG as well as her chest pain. Follow-up with her primary care doctor as needed. Follow-up sooner if worsening pain, high fever, persistent vomiting, or for any further concerns. The patient's emergency department workup and current diagnosis were explained to the patient and or family. Follow-up instructions were provided. Medications if prescribed were discussed. Instructions for when to return to the emergency department including specific worrisome symptoms were discussed with the patient and/or family. (GERRY ABAD) - Vital Signs Vital signs: Temp Pulse Resp BP Pulse Ox 97.6 F 65 21 H 120/86 H 95 08/17/18 02:15 08/17/18 02:15 08/17/18 07:01 08/17/18 07:01 08/17/18 07:01 - Laboratory Laboratory results interpreted by me: 08/17/18 08/17/18 08/17/18 03:45 03:45 05:50 WBC 13.5 H Hgb 15.8 H Absolute Neutrophils 8.4 H Sodium 136.7 L Calcium 10.6 H Urine Ketones 20 H Urine Blood SMALL H Urine Nitrite POSITIVE H Ur Leukocyte Esterase TRACE H Discharge <CALVIN CLOUD - Last Filed: 08/17/18 04:50> <GERRY ABAD - Last Filed: 08/17/18 08:07> - Discharge Clinical Impression: Abnormal EKG Nausea & vomiting Qualifiers: Vomiting type: unspecified Vomiting Intractability: non-intractable Qualified Code(s): R11.2 - Nausea with vomiting, unspecified Chest pain Qualifiers: Chest pain type: unspecified Qualified Code(s): R07.9 - Chest pain, unspecified UTI (urinary tract infection) Qualifiers: Urinary tract infection type: acute cystitis Hematuria presence: without hematuria Qualified Code(s): N30.00 - Acute cystitis without hematuria Condition: Stable Disposition: HOME, SELF-CARE Instructions: Cephalexin ([facility]), Urinary Tract Infection ([facility]), Vomiting ([facility]) Additional Instructions: Take medication as prescribed. Drink plenty of fluids. Follow-up with your family doctor at the next available appointment. Follow-up with cardiology at the next available appointment. Follow-up sooner or return the emergency depa rtment for worsening pain, high fever, worsening chest pain, shortness of breath, difficulty breathing, persistent vomiting, or for any further concerns. Prescriptions: Cephalexin Monohydrate [Keflex 500 mg Capsule] 500 mg PO Q6H 5 Days capsule Ondansetron HCl [Zofran 4 mg Tablet] 1 - 2 tab PO Q4H PRN #10 tablet PRN Reason: Forms: Smoking Cessation Education Referrals: ASH JACOBSON PA-C [Primary Care Provider] - Follow up as needed GAETANO COLMENARES MD [ACTIVE STAFF] - Follow up as needed
--- NOTE | 2018-08-17 04:00 | RADIOLOGY REPORT (SQ) ---
Chest single view on 08/17/2018 at 3:33 AM CLINICAL INDICATION: Weakness COMPARISON: 07/30/2018 FINDINGS: The lungs are clear. Cardiac, hilar and mediastinal contours are within normal limits. Pulmonary vascularity is within normal limits. No bony abnormality is noted. IMPRESSION: No active disease.
[2018-08-17 04:10] LABS: ABSOLUTE BASOPHILS # (AUTO) 0.1 10^3/uL (0.0-0.2); ABSOLUTE EOSINOPHILS # (AUTO) 0.1 10^3/uL (0.0-0.6); ABSOLUTE LYMPHOCYTES (AUTO) 3.5 10^3/uL (0.5-4.7); ABSOLUTE MONOCYTES (AUTO) 1.4 10^3/uL (0.1-1.4); ABSOLUTE NEUT (AUTO) 8.4 10^3/uL (1.7-8.2); EOSINOPHILS % (AUTO) 0.8 % (0-6); HEMATOCRIT 44.2 % (36.0-47.0); HEMOGLOBIN 15.8 g/dL (12.0-15.5); MEAN CORPUSCULAR HEMOGLOBIN 31.3 pg (27.0-33.4); MEAN CORPUSCULAR HGB CONC 35.7 g/dL (32.0-36.0); MEAN CORPUSCULAR VOLUME 88 fl (80-97); PLATELET COUNT 333 10^3/uL (150-450); RED BLOOD COUNT 5.04 10^6/uL (3.72-5.28); SEGMENTED NEUTROPHILS % (AUTO) 62.2 % (42-78); TOTAL CELLS COUNTED % (AUTO) 100 %; WHITE BLOOD COUNT 13.5 10^3/uL (4.0-10.5)
[2018-08-17 04:26] LABS: ALANINE AMINOTRANSFERASE 28 U/L (9-52); ALBUMIN 4.2 g/dL (3.5-5.0); ALKALINE PHOSPHATASE 92 U/L (38-126); ANION GAP 10 (5-19); ASPARTATE AMINO TRANSFERASE 29 U/L (14-36); BILIRUBIN,DIRECT 0.3 mg/dL (0.0-0.4); BILIRUBIN,TOTAL 0.7 mg/dL (0.2-1.3); BLOOD UREA NITROGEN 16 mg/dL (7-20); CALCIUM 10.6 mg/dL (8.4-10.2); CARBON DIOXIDE 22 mmol/L (22-30); CHLORIDE 105 mmol/L (98-107); GLUCOSE 94 mg/dL (75-110); LIPASE 28.8 U/L (23-300); POTASSIUM 3.9 mmol/L (3.6-5.0); SODIUM 136.7 mmol/L (137-145); TOTAL PROTEIN 7.6 g/dL (6.3-8.2)
--- NOTE | 2018-08-17 05:41 | RADIOLOGY REPORT (SQ) ---
EXAM: CT abdomen pelvis with IV contrast CLINICAL DATA: 52-year-old female with abdominal pain, nausea, vomiting and diarrhea TECHNICAL DATA: Axial CT imaging of the abdomen and pelvis was performed following the administration of intravenous contrast.. Sagittal and coronal reconstructed images were then performed. The CT study is performed according to ALARA (as low as reasonably achievable) or ALARA/IMAGE GENTLY, with automatic adjustment of mA and/or kV according to patient size. Performed on: 08/17/2018 at 4:57 AM. Comparison: Prior CT scan performed on 02/12/2012 FINDINGS: Lung bases: The lung bases are clear. There is minimal bibasilar atelectasis and/or fibrosis. Liver: Liver is top normal in size and measures approximately 18.5 cm in craniocaudal dimension. No focal hepatic abnormalities are identified. Liver attenuation is within normal limits. Spleen:The spleen is normal is size, configuration and attenuation. Gallbladder and bile duct: The gallbladder is surgically absent. There is no biliary ductal dilatation. Pancreas: The pancreas is grossly normal in size and configuration. Adrenal Glands:The adrenal glands are normal in size and configuration. Kidneys:The kidneys are normal in size and configuration. There is no evidence of hydronephrosis. There is no evidence of nephrolithiasis. No definite solid or cystic renal mass lesions are identified. Stomach:The stomach is grossly normal. There is no definite hiatal hernia. Bowel:The bowel gas pattern is non specific and non obstructive. There is occasional colonic diverticulosis. Appendix: There is no CT evidence to suggest acute appendicitis. Free air:There is no evidence of free air. Free fluid: There is no evidence of free fluid. Vasculature: The aorta is normal in caliber and contour. The inferior vena cava is grossly unremarkable. Lymphadenopathy: No pathologic lymphadenopathy is identified. Bladder: The bladder is well distended and smooth in contour. Reproductive: The uterus is grossly within normal limits. Bones: No acute osseous abnormalities are identified. Soft tissues: There is a small fat-containing right lower ventral abdominal wall hernia. There is also a small fat-containing ventral umbilical hernia. IMPRESSION: 1. No evidence of acute intra-abdominal or intrapelvic pathology. There is no evidence to suggest bowel obstruction. 2. There is occasional colonic diverticulosis without evidence of diverticulitis. 3. Small fat-containing right lower ventral abdominal wall hernia and small fat-containing ventral umbilical hernia. 4. Remote cholecystectomy. 5. The liver is top normal in size.
[2018-08-17 06:25] LABS: APPEARANCE,URINE SLIGHTLY-CLOUDY; BILIRUBIN,URINE NEGATIVE (NEGATIVE); COLOR,URINE YELLOW; GLUCOSE, URINE NEGATIVE (NEGATIVE); KETONES,URINE 20 mg/dL (NEGATIVE); LEUKOCYTE ESTERASE,URINE TRACE (NEGATIVE); NITRITE,URINE POSITIVE (NEGATIVE); PROTEIN,URINE NEGATIVE (NEGATIVE); UROBILINOGEN,URINE NEGATIVE mg/dL (<2.0)
--- NOTE | 2018-08-17 06:39 | EKG REPORT ---
SEVERITY:- BORDERLINE ECG - SLOW SINUS ARRHYTHMIA, RATE 41-60 BORDERLINE T ABNORMALITIES, ANT-LAT LEADS : Confirmed by: Jered Arguelles MD 17-Aug-2018 06:38:56
[2018-08-17] MEDS ORDERED: CEFTRIAXONE 1 GM/D5W RTU 1 GM/50 ML RTUPB IV ONE (07:11)
[2018-08-17 07:39] VITALS: BP 120/86
== END 2018-08-17 08:27 | disposition home or self-care (01) ==
LOC: ER 01:33
DX: N30.00 Acute cystitis without hematuria (principal); R00.1 Bradycardia, unspecified; R94.31 Abnormal electrocardiogram [ECG] [EKG]; R11.2 Nausea with vomiting, unspecified; R07.9 Chest pain, unspecified; R25.2 Cramp and spasm; R19.7 Diarrhea, unspecified; J44.9 Chronic obstructive pulmonary disease, unspecified; Z87.891 Personal history of nicotine dependence; R53.1 Weakness; Z88.5 Allergy status to narcotic agent; Z88.6 Allergy status to analgesic agent; Z90.49 Acquired absence of other specified parts of digestive tract
CPT/HCPCS: 93005; 96376; 99285; 96361; 96375; 96365; 36415; 83690; 83735; 85025; 81025; 80053; 81001; 84484; 71045; 74177; 93010; J2270; J2405; J7030; J0696

== ENCOUNTER 2019-05-14 03:23 | Emergency (ER) | payer MEDICAID ==
[2019-05-14] MEDS ORDERED: IPRATROPIUM/ALBUTEROL 0.5-2.5 MG/3 ML AMPUL NEB ONE (04:18)
[2019-05-14] MEDS ORDERED: MORPHINE SULFATE 10 MG/ML INJ IV PRN (04:18)
[2019-05-14] MEDS ORDERED: ONDANSETRON HCL INJ/PF 4 MG/2 ML SDV IV ONE (04:18)
[2019-05-14 04:21] LABS: ABSOLUTE BASOPHILS # (AUTO) 0.1 10^3/uL (0.0-0.2); ABSOLUTE EOSINOPHILS # (AUTO) 0.3 10^3/uL (0.0-0.6); ABSOLUTE LYMPHOCYTES (AUTO) 2.9 10^3/uL (0.5-4.7); ABSOLUTE MONOCYTES (AUTO) 1.4 10^3/uL (0.1-1.4); ABSOLUTE NEUT (AUTO) 8.6 10^3/uL (1.7-8.2); BASOPHILS % (AUTO) 0.4 % (0-2); EOSINOPHILS % (AUTO) 2.5 % (0-6); HEMATOCRIT 41.3 % (36.0-47.0); HEMOGLOBIN 14.2 g/dL (12.0-15.5); LYMPHOCYTES % (AUTO) 22.1 % (13-45); MEAN CORPUSCULAR HEMOGLOBIN 30.2 pg (27.0-33.4); MEAN CORPUSCULAR HGB CONC 34.3 g/dL (32.0-36.0); MEAN CORPUSCULAR VOLUME 88 fl (80-97); MONOCYTES % (AUTO) 10.2 % (3-13); PLATELET COUNT 325 10^3/uL (150-450); RED BLOOD COUNT 4.69 10^6/uL (3.72-5.28); RED CELL DISTRIBUTION WIDTH 13.7 % (11.5-14.0); SEGMENTED NEUTROPHILS % (AUTO) 64.8 % (42-78); TOTAL CELLS COUNTED % (AUTO) 100 %; WHITE BLOOD COUNT 13.2 10^3/uL (4.0-10.5)
--- NOTE | 2019-05-14 04:27 | ER Document Report ---
ED General - General TRAVEL OUTSIDE OF THE [place] IN LAST 30 DAYS: No <JOAQUIN SEARS - Last Filed: 05/14/19 06:01> <CEE NIETO - Last Filed: 05/14/19 08:25> - General Chief Complaint: Chest Pain Stated Complaint: CHEST AND BACK PAIN Time Seen by Provider: 05/14/19 04:17 Primary Care Provider: ASH JACOBSON PA-C [Primary Care Provider] - Follow up as needed - [facility] Notes: Ekta Rodriguez is a 53-year-old female with longstanding history of heavy cigarette smoking and COPD who states she has been ill for 5 to 7 days with coughing and wheezing. Over the last 3 days she has had intermittent sharp chest pains. Over the last 5 hours she has had more of a pressure sensation in the center of her chest which is aggravated by taking a deep breath. She denies sputum production. She denies fever. She has been taking nebulizer treatments at home. Patient denies any known prior history of cardiac disease. She denies history of hypertension, diabetes or hyperlipidemia. Her family history is negative for CAD. Patient localizes her chest pain to central chest radiating through the back. No nausea or vomiting. No diaphoresis. Denies personal or family history of thromboembolic disease. (JOAQUIN SEARS) - Related Data Allergies/Adverse Reactions: fentanyl [Fentanyl] Allergy (Severe, Verified 05/14/19 03:48) rash ibuprofen [Ibuprofen] Allergy (Mild, Verified 05/14/19 03:48) rash Past Medical History - General Information source: Patient - Social History Smoking Status: Current Every Day Smoker Family History: Reviewed & Not Pertinent Patient has suicidal ideation: No Patient has homicidal ideation: No - Past Medical History Cardiac Medical History: Denies: Hx Coronary Artery Disease, Hx Heart Attack, Hx Hypertension Pulmonary Medical History: Reports: Hx Bronchitis, Hx COPD, Hx Pneumonia Denies: Hx Asthma, Hx Tuberculosis Neurological Medical History: Denies: Hx Cerebrovascular Accident, Hx Seizures Renal/ Medical History: Denies: Hx Peritoneal Dialysis Musculoskeletal Medical History: Denies Hx Arthritis Past Surgical History: Reports: Hx Appendectomy, Hx Cholecystectomy, Hx Pancr eatic Surgery, Hx Tubal Ligation. Denies: Hx Hysterectomy, Hx Pacemaker - Immunizations Hx Diphtheria, Pertussis, Tetanus Vaccination: No <JOAQUIN SEARS - Last Filed: 05/14/19 06:01> Review of Systems <JOAQUIN SEARS - Last Filed: 05/14/19 06:01> - Review of Systems Notes: Constitutional: Negative for fever. HENT: Negative for sore throat. Eyes: Negative for visual changes. Cardiovascular: As per HPI. Respiratory: As per HPI. Gastrointestinal: Negative for abdominal pain, vomiting or diarrhea. Genitourinary: Negative for dysuria. Musculoskeletal: Negative for back pain. Skin: Negative for rash. Neurological: Negative for headaches, weakness or numbness. 10 point ROS negative except as marked above and in HPI. (JOAQUIN SEARS) Physical Exam <JOAQUIN SEARS - Last Filed: 05/14/19 06:01> - Vital signs Vitals: Temp Pulse Resp BP Pulse Ox 97.9 F 88 24 H 141/93 H 94 05/14/19 03:45 05/14/19 03:45 05/14/19 03:45 05/14/19 03:45 05/14/19 03:45 - Notes Notes: GENERAL: Female patient appearing significantly older than stated age who appears moderately uncomfortable. SKIN: Good turgor no rashes. HEAD: Normocephalic atraumatic. EYES: PERRLA. EOMI. Conjunctivae and sclerae clear. EARS: CANALS AND TMS CLEAR. NOSE: CLEAR. MOUTH: Moist mucosa. Good dentition. No stridor or edema. No drooling. NECK: Supple. No masses or thyromegaly. No adenopathy. Carotids 2+ without bruits. No JVD. BACK: Symmetrical without tenderness. CHEST: Nontender. Scattered rhonchi and faint wheezes bilaterally.. HEART: Regular rhythm. No murmur gallop or rub. ABDOMEN: Soft nontender without masses, organomegaly or rebound. Bowel sounds normally active. No bruits. GENITALIA: Deferred. EXTREMITIES: 1+ pretibial edema bilaterally. No calf tenderness. Cap refill less than 1.5 seconds. Dorsalis pedis and posterior tibial pulses 3+ and symmetrical. NEUROLOGICAL: GCS 15. Alert and oriented x3. Fluent speech. Cranial nerves II through XII intact. Sensorimotor and cerebellar normal. Normal tone. PSYCHIATRIC: Appropriate affect. (JOAQUIN SEARS) Course - Laboratory Result Diagrams: 05/14/19 04:00 05/14/19 04:00 <JOAQUIN SEARS - Last Filed: 05/14/19 06:01> - Laboratory Result Diagrams: 05/14/19 04:00 05/14/19 04:00 <CEE NIETO - Last Filed: 05/14/19 08:25> - Re-evaluation Re-evalutation: 05/14/19 04:28 Findings at this time are most consistent with pleuropericarditis although I cannot absolutely rule out ischemic etiology. We will get additional serial EKGs and we have ordered troponin level and chest x-ray. Influenza screen is also been ordered. I will give the patient some IV morphine supplemental oxygen and we have also administered aspirin. 05/14/19 06:01 Pain-free after 1 dose of morphine. Second EKG shows findings more consistent with pericarditis. Sed rate is pending. First troponin is negative. Case discussed with hospitalist on-call, Dr. Chaitanya Wallis, who requests a second troponin 3 hours after the first before he would consider local admission because he does not have cardiology backup for heart catheterization. 05/14/19 06:13 Further care of the patient will be turned over to Dr. Nieto at 0600 hrs. (JOAQUIN SEARS) 05/14/19 08:23 Patient appears comfortable at this time. Repeat troponin is come back at the same level with no increase in value. Discussed with the hospitalist who will admit patient today to the hospital she asked me to sign patient for admission to Dr. Sorensen for the admission (CEE NIETO) - Vital Signs Vital signs: Temp Pulse Resp BP Pulse Ox 98.1 F 88 20 102/62 93 05/14/19 08:01 05/14/19 03:45 05/14/19 08:01 05/14/19 08:01 05/14/19 08:01 - Laboratory Laboratory results interpreted by me: 05/14/19 05/14/19 05/14/19 04:00 04:00 04:00 WBC 13.2 H Absolute Neuts (auto) 8.6 H ESR 56 H Glucose 125 H - EKG Interpretation by Me Additional EKG results interpreted by me: 05/14/19 04:27 Patient has had 2 EKGs since arrival here and we have no old tracings for comparison. She appears to have minimal diffuse ST elevation with no reciprocal depressions appreciated and overall appearance is most suggestive of pericarditis. Isolated T wave inversion in V1. Normal axis. Normal sinus rhythm. Further serial tracings are suggested. (JOAQUIN SEARS) Discharge <JOAQUIN SEARS - Last Filed: 05/14/19 06:01> - Discharge Admitting Provider: Franchesca (Hospitalist) Unit Admitted: Telemetry <CEE NIETO - Last Filed: 05/14/19 08:25> - Discharge Clinical Impression: Acute exacerbation of chronic obstructive pulmonary disease (COPD) Chest pain Qualifiers: Chest pain type: unspecified Qualified Code(s): R07.9 - Chest pain, unspecified Condition: Serious Disposition: ADMITTED INPATIENT Referrals: ASH JACOBSON PA-C [Primary Care Provider] - Follow up as needed
[2019-05-14] MEDS ORDERED: ASPIRIN 81 MG TABLET, CHEWABLE PO ONE (04:29)
[2019-05-14 04:37] LABS: ALBUMIN 4.1 g/dL (3.5-5.0); ALKALINE PHOSPHATASE 122 U/L (38-126); ANION GAP 8 (5-19); ASPARTATE AMINO TRANSFERASE 29 U/L (14-36); BILIRUBIN,DIRECT 0.2 mg/dL (0.0-0.4); BILIRUBIN,TOTAL 0.3 mg/dL (0.2-1.3); BLOOD UREA NITROGEN 17 mg/dL (7-20); CALCIUM 9.8 mg/dL (8.4-10.2); CARBON DIOXIDE 29 mmol/L (22-30); CHLORIDE 104 mmol/L (98-107); CREATINE KINASE 36 U/L (30-135); GLUCOSE 125 mg/dL (75-110); POTASSIUM 4.4 mmol/L (3.6-5.0); TOTAL PROTEIN 7.6 g/dL (6.3-8.2)
[2019-05-14 04:48] LABS: CREATINE KINASE MB 0.31 ng/mL (<4.55)
[2019-05-14 04:52] LABS: TROPONIN I < 0.012 ng/mL
[2019-05-14 05:30] LABS: A TYPE INFLUENZA AG NEGATIVE (NEGATIVE); B INFLUENZA AG NEGATIVE (NEGATIVE)
--- NOTE | 2019-05-14 06:50 | RADIOLOGY REPORT (SQ) ---
Chest single view on 05/14/2019 at 4:30 AM CLINICAL INDICATION: Chest pain COMPARISON: 08/17/2018 FINDINGS: The lungs are clear. Cardiac, hilar and mediastinal contours are within normal limits. Pulmonary vascularity is within normal limits. No bony abnormality is noted. IMPRESSION: No active disease.
[2019-05-14 08:07] VITALS: BP 102/62
--- NOTE | 2019-05-14 08:36 | EKG REPORT ---
SEVERITY:- ABNORMAL ECG - SINUS RHYTHM FIRST DEGREE AV BLOCK ST ELEVATION SUGGESTS PERICARDITIS CLINICAL CORRELATION NEEDED. : Confirmed by: Jered Arguelles MD 14-May-2019 08:35:19
--- NOTE | 2019-05-14 08:37 | EKG REPORT ---
SEVERITY:- ABNORMAL ECG - SINUS RHYTHM FIRST DEGREE AV BLOCK ST ELEVATION SUGGESTS PERICARDITIS, CLINICAL CORRELATION NEEDED. : Confirmed by: Jered Arguelles MD 14-May-2019 08:36:25
--- NOTE | 2019-05-14 16:28 | PDOC CONSULTATION ---
Consultation Consult Date: 05/14/19 Provider Consulted: SEAN RUSSELL Consult reason:: chest pain History of Present Illness Admission Date/PCP: 05/14/19 08:33 ASH JACOBSON PA-C Patient complains of: chest pain History of Present Illness: ODELL URBAN is a 53 year old female with a past medical history significant for COPD, bipolar/depression, obesity, and tobacco dependence with current use who presented to the emergency department today with a complaint of chest pain. The patient reports that she has had 1 week of sore throat, nasal congestion, shortness of breath, and productive cough. She reports that she started developing chest discomfort 1 day ago; now radiating to her back and left shoulder; increased with deep breath, cough, and right upper arm movements. The patient denies any alleviating symptoms; has only tried Tylenol for her discomfort. Evaluation in the emergency department revealed stable vital signs, mild leukocytosis (WBCs 13.2) sed rate 56, normal d-dimer, unremarkable chemistry, and negative troponins x2. Chest x-ray was benign. Notably, EKG demonstrated diffuse ST elevation. She was referred to the hospitalist service for evaluation and management of her chest discomfort. Past Medical History Cardiac Medical History: Reports: Hyperlipidema Denies: Coronary Artery Disease, Hypertension Pulmonary Medical History: Reports: Bronchitis, Chronic Obstructive Pulmonary Disease (COPD), Pneumonia Denies: Asthma, Tuberculosis EENT Medical History: Reports: None Neurological Medical History: Reports: Migraine Denies: Ischemic CVA, Seizures Endocrine Medical History: Reports: Obesity Denies: Diabetes Mellitus Type 2, Hypothyroidism Renal/ Medical History: Reports: None Malignancy Medical History: Reports: None GI Medical History: Reports: None Musculoskeltal Medical History: Reports: Arthritis Psychiatric Medical History: Reports: Bipolar Disorder, Depression, General Anxiety Disorder, Tobacco Dependency Traumatic Medical History: Reports: None Hematology: Denies: Anemia Infectious Medical History: Reports: None Past Surgical History Past Surgical History: Reports: Appendectomy, Cholecystectomy, Tubal Ligation Denies: Hysterectomy, Pacemaker Social History Information Source: Patient Lives with: Family Smoking Status: Current Every Day Smoker Cigarettes Packs Per Day: 0.5 Electronic Cigarette use?: No Frequency of Alcohol Use: None Hx Recreational Drug Use: No Hx Prescription Drug Abuse: No - Advance Directive Resuscitation Status: Full Code Family History Family History: Reviewed & Not Pertinent Parental Family History Reviewed: Yes Children Family History Reviewed: Yes Sibling(s) Family History Reviewed.: No Medication/Allergy Home Medications: Buspirone HCl [Buspar 30 mg Tablet] 1 tab PO BID 08/19/17 Gabapentin 800 mg PO TID 08/19/17 Tiotropium [place] [Spiriva Handihaler 18 mcg/dose (30 Dose)] 1 cap PO PRN PRN 08/19/17 Acetaminophen [Tylenol] 325 mg PO PRN PRN 07/23/18 Benztropine Mesylate [Cogentin 1 mg Tablet] 1 - 2 tab PO BID 07/23/18 Cyanocobalamin (Vitamin B-12) [B-12] 1,500 mcg PO DAILY 07/23/18 Diazepam [Valium] 5 mg PO BID PRN 07/23/18 Folic Acid 400 mcg PO DAILY 07/23/18 Ipratropium/Albuterol Sulfate [Duoneb 3 ml Ampul] 3 ml NEB TID 07/23/18 Topiramate [Topamax 100 mg Tablet] 150 mg PO QAM 07/23/18 Topiramate [Topamax] 100 mg PO QHS 07/23/18 Ziprasidone HCl [Geodon] 80 mg PO BID 07/23/18 Oxycodone HCl/Acetaminophen [Percocet 5-325 mg Tablet] 1 tab PO Q6 PRN #40 tab 0 07/29/18 Cephalexin Monohydrate [Keflex 500 mg Capsule] 500 mg PO Q6H 5 Days capsule 08/17/18 Morphine Sulfate [Morphine Ir 15 mg Tablet] 15 mg PO Q8 #6 tablet 08/17/18 Ondansetron HCl [Zofran 4 mg Tablet] 1 - 2 tab PO Q4H PRN #10 tablet 08/17/18 Aspirin [Aspirin 325 mg Tablet] 650 mg PO TID #84 tab 05/14/19 Colchicine [Colchicine 0.6 mg Tablet] 0.6 mg PO BID #28 tablet 05/14/19 Omeprazole 20 mg PO DAILY #30 capsule. 05/14/19 Allergies/Adverse Reactions: fentanyl [Fentanyl] Allergy (Severe, Verified 05/14/19 03:48) rash ibuprofen [Ibuprofen] Allergy (Mild, Verified 05/14/19 03:48) rash Review of Systems Constitutional: PRESENT: fatigue, headache(s). ABSENT: chills, fever(s), weight gain, weight loss Eyes: ABSENT: visual disturbances Ears: ABSENT: hearing changes Nose, Mouth, and Throat: PRESENT: headache(s), sore throat Cardiovascular: PRESENT: chest pain. ABSENT: dyspnea on exertion, edema, orthropnea, palpitations Respiratory: PRESENT: cough, dyspnea, sputum. ABSENT: hemoptysis Gastrointestinal: ABSENT: abdominal pain, constipation, diarrhea, hematemesis, hematochezia, nausea, vomiting Genitourinary: ABSENT: dysuria, hematuria Musculoskeletal: ABSENT: joint swelling Integumentary: ABSENT: rash, wounds Neurological: ABSENT: abnormal gait, abnormal speech, confusion, dizziness, focal weakness, syncope Psychiatric: ABSENT: anxiety, depression, homidical ideation, suicidal ideation Endocrine: ABSENT: cold intolerance, heat intolerance, polydipsia, polyuria Hematologic/Lymphatic: ABSENT: easy bleeding, easy bruising Physical Exam Vital Signs: Temp Pulse Resp BP Pulse Ox 98.2 F 88 20 102/62 93 05/14/19 09:32 05/14/19 03:45 05/14/19 08:01 05/14/19 08:01 05/14/19 08:01 Intake & Output 05/13/19 05/14/19 05/15/19 06:59 06:59 06:59 Weight 78.925 kg General appearance: PRESENT: no acute distress, cooperative, obese, well- developed, well-nourished Head exam: PRESENT: atraumatic, normocephalic Eye exam: PRESENT: conjunctiva pink, EOMI, PERRLA. ABSENT: scleral icterus Ear exam: PRESENT: normal external ear exam Mouth exam: PRESENT: moist, tongue midline Neck exam: ABSENT: carotid bruit, JVD, lymphadenopathy, thyromegaly Respiratory exam: PRESENT: clear to auscultation huber, symmetrical, unlabored. ABSENT: rales, rhonchi, wheezes Cardiovascular exam: PRESENT: RRR, +S1, +S2. ABSENT: diastolic murmur, rubs, systolic murmur Pulses: PRESENT: normal dorsalis pedis pul Vascular exam: PRESENT: normal capillary refill GI/Abdominal exam: PRESENT: normal bowel sounds, soft. ABSENT: distended, guarding, mass, organolmegaly, rebound, tenderness Rectal exam: PRESENT: deferred Extremities exam: PRESENT: full ROM. ABSENT: calf tenderness, clubbing, pedal edema Musculoskeletal exam: PRESENT: ambulatory Neurological exam: PRESENT: alert, awake, oriented to person, oriented to place, oriented to time, oriented to situation, CN II-XII grossly intact. ABSENT: motor sensory deficit Psychiatric exam: PRESENT: appropriate affect, normal mood. ABSENT: homicidal ideation, suicidal ideation Skin exam: PRESENT: dry, intact, warm. ABSENT: cyanosis, rash Results Laboratory Results: 05/14/19 04:00 05/14/19 04:00 05/14/19 05/14/19 04:00 04:00 WBC 13.2 H RBC 4.69 Hgb 14.2 Hct 41.3 MCV 88 MCH 30.2 MCHC 34.3 RDW 13.7 Plt Count 325 Seg Neutrophils % 64.8 Sodium 141.2 Potassium 4.4 Chloride 104 Carbon Dioxide 29 Anion Gap 8 BUN 17 Creatinine 0.89 Est GFR ( Amer) > 60 Glucose 125 H Calcium 9.8 Total Bilirubin 0.3 AST 29 Alkaline Phosphatase 122 Total Protein 7.6 Albumin 4.1 05/14/19 05/14/19 05/14/19 04:00 04:00 06:51 Creatine Kinase 36 CK-MB (CK-2) 0.31 Troponin I < 0.012 < 0.012 Impressions: Chest X-Ray 05/14/19 04:11 IMPRESSION: No active disease. Assessment and Plan - Diagnosis (1) Pericarditis Qualifiers: Pericarditis type: infectious Infectious pericarditis etiology: viral Chronicity: acute Qualified Code(s): I30.1 - Infective pericarditis Is this a current diagnosis for this admission?: Yes Plan: Discussed with Dr. Ran Peters; recommended discharged home on Motrin 3 times daily. Patient declined Motrin due to adverse reactions. Further declined prednisone for the same. She is agreeable to aspirin which she states she is tolerates well. Patient is discharged home in stable condition. She is prescribed aspirin 650 mg 3 times daily and colchicine 0.5 mg twice daily. She is advised to stop smoking. She is instructed to follow-up with her primary care provider within [address] Peters in 1 to 2 weeks. She is further instructed to return to the emergency department as needed for any concerning symptoms. (2) Bronchitis Is this a current diagnosis for this admission?: Yes Plan: Likely viral; complicated by COPD and continuous tobacco dependence. Patient declined antibiotic and steroid therapy. She has been afebrile. Recommend symptomatic management with OTC cough/cold medications, increase fluid intake, rest. Offered to provide refill of the patient's nebulizer medication; she reports that she is just had this prescription filled and has plenty of duo nebs on hand. She is strongly encouraged to stop smoking. (3) COPD (chronic obstructive pulmonary disease) Qualifiers: COPD type: chronic bronchitis Is this a current diagnosis for this admission?: Yes Plan: Continue home medication regiment. Remaining management as above. (4) Chest pain Qualifiers: Chest pain type: unspecified Qualified Code(s): R07.9 - Chest pain, unspecified Is this a current diagnosis for this admission?: Yes Plan: Secondary to #1 and #2. Management as above. - Time Time Spent with patient: 35 or more minutes Medications reviewed and adjusted accordingly: Yes Anticipated discharge: Home
== END 2019-05-14 10:11 | disposition home or self-care (01) ==
LOC: ER 03:23 → EH 08:33 → UNDOADMIN 08:33 → ER 10:11 → UNDODISIN 10:11
DX: J44.1 Chronic obstructive pulmonary disease with (acute) exacerbation (principal); R07.9 Chest pain, unspecified; M54.9 Dorsalgia, unspecified; R05 Cough; F17.210 Nicotine dependence, cigarettes, uncomplicated
CPT/HCPCS: 93005; 94640; 99285; 96374; 96375; 36415; 82553; 82550; 85025; 85652; 80053; 84484; 85379; 87804; 71045; 93010; J2270; J2405; J7620